=== PATIENT | male | born 1960 | race Caucasian/White ===

== ENCOUNTER → 2020-02-13 | Outpatient (CLI) | payer BC ==
--- NOTE | 2020-02-13 16:50 | US ---
EXAMINATION TYPE: US scrotum with doppler. DATE OF EXAM: 02/13/2020 COMPARISON: NONE CLINICAL HISTORY: 59-year-old male N50.9 Testicular lump. Lump right side. TECHNIQUE: Grayscale and color Doppler Duplex imaging performed of the scrotum. FINDINGS: EXAM MEASUREMENTS: TESTICLES: Right Testicle: 4.4 x 2.4 x 3.2 cm Left Testicle: 4.6 x 2.3 x 2.5 cm EPIDIDYMIS HEAD: Right Epididymis: 2.0 x .9 x 2.3 cm. 2 adjacent cysts versus a bilobed cyst measuring 1.8 x .9 x 1.8 cm. Left Epididymis: .9 x 1.4 x .9 cm Doppler performed to assess for testicular vascularity; good bilateral color flow and waveforms are s een. There is no evidence of testicular torsion. Presence of hydroceles: Trace on the left Presence of varicoceles: No IMPRESSION: 1. No evidence for testicular torsion or mass. 2. A 1.8 cm bilobed cyst versus 2 adjacent cysts within the right epididymal head. This may correspon d to the patient's palpable abnormality. Clinically correlate. 3. Trace fluid/hydrocele on the left of questionable clinical significance.
== END | disposition home or self-care (01) ==
LOC: RADUSWWP 15:33
PROVIDERS: ATTEND Internal Medicine
DX: N50.9 Disorder of male genital organs, unspecified (principal)
CPT/HCPCS: 76870; 93975